=== PATIENT | male | born 1950 | race Caucasian/White ===

== ENCOUNTER 2024-04-25 12:58 | Emergency (ER) | payer MEDICARE, OTHER, SELFPAY ==
[2024-04-25] VITALS (18 sets, daily range): BP systolic 71–160; BP diastolic 55–144; BMI 34.9
--- NOTE | 2024-04-25 12:59 | ED.GENMED ---
History of Present Illness
<Renee Tinoco PA-C - Last Filed: 04/25/24 18:31>
General
Chief Complaint: Fainting Sensation
Source: patient
Exam Limitations: none
Time Seen by Provider: 04/25/24 12:59
Nursing documentation reviewed up to this point in time: agreed with
History of Present Illness
History of Present Illness:
74-year-old male with past medical history of A-fib on Eliquis, CHF, coronary artery disease presenting emergency department with concerns of dizziness for the past 2 days. Patient also notes generalized weakness. Patient states that he went to
his PCP for this problem and was noted to be in A-fib. He was also noted to have low blood pressure in the 70s systolically at the time. Patient states that he is no longer dizzy, but generally feels 'off.' He denies patient's, chest, syncopal
episodes. Patient has paroxysmal afib and believes that the only time he went into it was in 2018 where he was in acute heart failure at the time and subsequently cardioverted. He follows with Dr. Bowie.
Past History
<Renee Tinoco PA-C - Last Filed: 04/25/24 18:31>
Past History
ED Past Medical History: CAD, HTN, Hypercholesterolemia and Other (Prostate CA)
ED Past Surgical History: Appendectomy and Other (prostatectomy, Cath w/ stents)
Social History
Tobacco: Non-smoker
Alcohol: Daily
Personal:
Living: with family
Employment: Employed
Review of Systems
<Renee Tinoco PA-C - Last Filed: 04/25/24 18:31>
Review of Systems
All Other Systems: ROS reviewed and negative except as documented in HPI and ROS
Phy Exam
<Renee Tinoco PA-C - Last Filed: 04/25/24 18:31>
Physical Exam
Physical Exam:
General: Patient is well appearing and in no acute distress; non-toxic
Skin: Warm and dry, no rashes or lesions
Head: Normocephalic, atraumatic
Eyes: Sclera non-icteric. EOMs intact. PERRLA.
Cardiac: Tachycardia, irregularly irregular
Peripheral Vascular: No lower extremity swelling or edema, 2+ dorsalis pedis and posterior tibial pulses bilaterally
Pulm: Normal respiratory effort, no wheezes, crackles, rhonchi
Neuro: CN II-XII intact, no focal neurologic deficits.
Psychiatric: Appropriate mood and affect.
Course
<Renee Tinoco PA-C - Last Filed: 04/25/24 18:31>
Orders/Labs/Results
Orders:
Orders
04/25/24 13:00
Electrocardiogram (*1) Urgent
Reason for Study: Atrial Fibrillation
EKG- Treatment ONCE
04/25/24 13:10
Complete Blood Count/With Diff Urgent
Comprehensive Metabolic Panel Urgent
TSH Reflex To Free T4 Urgent
04/25/24 13:52
Propofol [Diprivan] 20 ml .ROUTE .STK-MED
04/25/24 14:14
0.9% Sodium Chloride 500 ml [Nss] 500 ml IV BOLUS
04/25/24 14:18
Electrocardiogram (*1) Urgent
Reason for Study: Palpitations
EKG- Treatment ONCE
04/25/24 15:47
Electrocardiogram (*1) Urgent
Reason for Study: Angina, Unstable
EKG- Treatment ONCE
Abnormal Lab Results
04/25/24
13:10
RBC 4.65 L 10^6/uL
(4.70-6.10)
Immature Gran % 0.8 H %
(0-0.5)
BUN 59 H mg/dl
(9-20)
Creatinine 2.1 H mg/dL
(0.7-1.3)
Glucose 171 H mg/dl
(70-99)
04/25/24 13:10
04/25/24 13:10
Vital Signs
Initial and Last Documented VS:
Initial Vital Signs
BP
160/59
04/25/24 13:02
Last Documented Vital Signs
Temp Pulse Resp BP Pulse Ox
98.1 F 82 24 112/78 97
04/25/24 14:41 04/25/24 15:41 04/25/24 15:41 04/25/24 15:41 04/25/24 15:41
<Johan Pete, DO - Last Filed: 04/25/24 14:17>
Orders/Labs/Results
Orders:
Orders
04/25/24 13:00
Electrocardiogram (*1) Urgent
Reason for Study: Atrial Fibrillation
EKG- Treatment ONCE
04/25/24 13:10
Complete Blood Count/With Diff Urgent
Comprehensive Metabolic Panel Urgent
TSH Reflex To Free T4 Urgent
04/25/24 13:52
Propofol [Diprivan] 20 ml .ROUTE .STK-MED
04/25/24 14:14
0.9% Sodium Chloride 500 ml [Nss] 500 ml IV BOLUS
04/25/24 14:18
Electrocardiogram (*1) Urgent
Reason for Study: Palpitations
EKG- Treatment ONCE
04/25/24 15:47
Electrocardiogram (*1) Urgent
Reason for Study: Angina, Unstable
EKG- Treatment ONCE
Abnormal Lab Results
04/25/24
13:10
RBC 4.65 L 10^6/uL
(4.70-6.10)
Immature Gran % 0.8 H %
(0-0.5)
BUN 59 H mg/dl
(9-20)
Creatinine 2.1 H mg/dL
(0.7-1.3)
Glucose 171 H mg/dl
(70-99)
04/25/24 13:10
04/25/24 13:10
Vital Signs
Initial and Last Documented VS:
Initial Vital Signs
BP
160/59
04/25/24 13:02
Last Documented Vital Signs
Temp Pulse Resp BP Pulse Ox
98.1 F 82 24 112/78 97
04/25/24 14:41 04/25/24 15:41 04/25/24 15:41 04/25/24 15:41 04/25/24 15:41
Procedures
<Johan Pete DO - Last Filed: 04/25/24 14:17>
Cardioversion
Indication:: Afib
Performed by:: , Dr. Pete
Synchronized?: Yes
Energy Used: 200 joules
Number of attempts: 1
Successful?: Yes
ASA Risk Score: Class III
Any reaction or bad outcome to prior sedation/anesthesia?: No history of a reaction
Sedation level to be attained: moderate
Chart and allergies reviewed: Yes
Patient reassessed prior to sedation: Yes
Time out completed at (validating right patient & procedure): 14:00
History of difficult intubation: No
Airway free of obstruction: Yes
Patient has a gag reflex: Yes
Patient is able to open mouth: Yes
Patient has no dentures: Yes
Patient has no loose teeth: Yes
Medication administered by Provider during Moderate Sedation: IV Propofol (mg)
Total dose administered: 60
Time drug administered: 14:01
Start Time: 14:00
Stop Time: 14:11
<Renee Tinoco PA-C - Last Filed: 04/25/24 18:31>
MDM/Problems Addressed
Differential Diagnosis Includes:
Differentials include A-fib, electrolyte derangement, vasovagal presyncope, peripheral vertigo
MDM/Problems Addressed:
74-year-old male with past medical history of A-fib on Eliquis, CHF, coronary artery disease presenting emergency department with concerns of dizziness for the past 2 days. He went to doctor's office today and was found to be in rapid A-fib with a
blood pressure systolically in the 70s. EMS was called. Patient is currently asymptomatic and has a normal blood pressure. Patient does note that his blood pressure has been running lower recently. Upon presentation to the emergency department,
his blood pressure was 160/59. On physical exam, patient is well-appearing, no acute distress, heart rate irregular irregular. He has no chest pain, no shortness of breath. He previously went into A-fib around 2018 and was cardioverted. Patient
is rate controlled on beta-blockers. Patient is compliant with his Eliquis. Considering patient had unstable blood pressure in the office and was very symptomatic, did discuss the possibility of cardioversion with patient's cardiology group, [facility].
Dr. Maki aware and okay with plan. Patient successfully cardioverted. Patient's pressure after the procedure was low again, systolically in the 70s. He was given 400 and liter bolus of normal saline, and after period of observation, his
pressure came up to 112/170 and patient feels that this is what his baseline blood pressure has been recently. Patient is asymptomatic and feels well. I personally ambulated with patient throughout the emergency department and patient did not
become symptomatic. Patient states that he feels well to go home. Patient stable for discharge. Return precautions discussed.
Chronic conditions affecting care:
CHF on Lasix, A-fib on Eliquis, hypertension, hyperlipidemia
[place];Renee Tinoco PA-C - Last Filed: 04/25/24 18:31>
*Pulse Oximetry
Patient hypoxic: no
*EKG
Interpreted by ED Provider?: Yes
EKG Intrepretation Date: 04/25/24
Interpretation: abnormal
Comparison EKG: changes noted
Heart Rate: 127
Rate: tachycardiac
Rhythm: a-fib
[place]: normal axis
QRS Pattern: normal QRS
Ischemia: no ischemia
Data Reviewed
Review of Other/Old Records Reveals: Records (Reviewed ER physician documentation, 08/06/2017 patient managed for CHF, A-fib, patient was cardioverted) and Discharge Summary (Reviewed discharge summary from 08/10/2017)
Source: patient and records
Prescriptions/Medications Considered But Not Given:
n/a
Further Testing Considered But Not Given:
n/a
<Johan Pete DO - Last Filed: 04/25/24 14:17>
*Critical Care Note
Total Time (30-74mins, 75-104mins- exclusive of procedures): 40min
comment:
The patient was found to be in rapid A-fib. He apparently was hypotensive earlier in the day. He arrived normotensive. His vital signs were closely monitored. He was cardioverted. After sedation with cardioversion, his pressure did drop for a
while. He was given IV fluids and his vital signs were very closely monitored.
<Renee Tinoco PA-C - Last Filed: 04/25/24 18:31>
Patient Management
Escalation/DeEscalation of care consider admission/obs:
Admit not indicated, patient stable for discharge
ED Attending Note
<Renee Tinoco PA-C - Last Filed: 04/25/24 18:31>
-
Portions of this chart may have been created with voice recognition software.� Occasional wrong word or��sound alike� substitutions may have occurred due to the inherent limitations of voice recognition software.
<Johan Pete DO - Last Filed: 04/25/24 14:17>
ED Attending Note
Patient seen and examined by attending physician: Yes
I performed the substantive portion of visit, reviewed & personally made and approve the management plan that is documented in note by myself or RODRÍGUEZ.: Yes
I performed a history and physical exam of patient and discussed management with resident, I reviewed resident's note and agree with documented findings and plan of care.: Yes
ED Attending Note:
I evaluated patient at bedside. The patient was sedated and successfully cardioverted on 1 attempt. BP dropped after procedural sedation. He was given IV fluids.
Discharge Plan
Departure
Patient Disposition: Home (Routine Discharge)
Date of Disposition: 04/25/24
Time of Disposition: 15:55
Patient with high blood pressure during this ER visit?: Yes
Condition: Good
Discharge Problem:
Atrial fibrillation
Instructions: Atrial fibrillation, Procedural Sedation, Adult ED, BLOOD PRESSURE
Prescriptions:
No Action
valsartan [Diovan] 160 MG capsule
160 mg PO BID
hydralazine 25 MG tablet
25 mg PO BID
rosuvastatin 40 MG tablet
40 mg PO DAILY
gjqxktukfew-O5-Exevykeur serr 1 EACH tablet
1 ea PO DAILY
apixaban [Eliquis] 5 MG tablet
5 mg PO BID
alogliptin-pioglitazone 1 EACH tablet
1 ea PO DAILY
carvedilol 6.25 MG tablet
6.25 mg PO BID Qty: 60 2RF
aspirin 81 MG tablet,delayed release (DR/EC)
81 mg PO DAILY 0RF
fenofibrate nanocrystallized 48 MG tablet
48 mg PO DAILY Qty: 30 2RF
furosemide 40 MG tablet
40 mg PO DAILY Qty: 30 2RF
Referrals:
Les Elizabeth DO [Family Provider] -
Activity Restrictions/Additional Instructions:
Please call Dr. Bowie's office to schedule follow up appointment. His office is aware that you were here today.
Your creatinine today was 2.1 You received IV fluids in the emergency department. Your eliquis dose may need to be adjusted. 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
Please return to the emergency department should experience chest pain, palpitations, dizziness, lightheadedness, syncopal episodes, headache, nausea, vomiting, decreased urinary output, weakness on one-sided body versus other, difficulty speaking,
confusion, or any other signs or symptoms concerning to you
Interventions
Interventions:
*Risk Screen - Suicide Last Done: 04/25/24 13:05
*General Assessment Last Done: 04/25/24 13:05
*Neglect/Abuse Screening Last Done: 04/25/24 13:05
ED- Fall Risk Assessment Last Done: 04/25/24 16:00
*ED COVID-19 Vaccine History Last Done: 04/25/24 13:15
*Nursing Disposition Last Done: 04/25/24 16:14
ED- Cardiac Assessment Last Done: 04/25/24 13:24
ED- Neurological Assessment Last Done: 04/25/24 13:24
Discharge Date and Time
Discharge Date/Time: 04/25/24 16:16
Print Language: CHINESE
[2024-04-25 13:35] LABS: % Basophils 0.2 % (0-2); % Immature Granulocytes 0.8 % (0-0.5); % Lymphocytes 23.1 % (20.5-51.1); % Monocytes 7.3 % (1.7-9.3); % Neutrophils 67.6 % (42.2-75.2); Absolute Eosinophils 0.1 10^3/uL (0-0.7); Absolute Lymphocytes 1.2 10^3/uL (1.2-3.4); Absolute Monocytes 0.4 10^3/uL (0.1-0.6); Absolute Neutrophils 3.5 10^3/uL (1.4-6.5); Hemoglobin 14.3 g/dL (13.0-18.0); Mean Corp Hgb Conc. 34.9 g/dL (33.0-37.0); Mean Corpuscular Hgb 30.8 pg (27.0-31.0); Mean Corpuscular Volume 88.2 fL (80.0-94.0); Mean Platelet Volume 9.1 fL (7.4-10.4); Nucleated Red Blood Cells % 0 % (-); Platelet Count 150 10^3/uL (130-400); Red Blood Cell Count 4.65 10^6/uL (4.70-6.10); Red Cell Dist. Width 13.6 % (11.5-14.5); White Blood Cell Count 5.2 10^3/uL (4.8-10.8)
[2024-04-25 13:56] LABS: ALT (SGPT) 33 U/L (0-50); AST (SGOT) 33 U/L (17-59); Albumin 4.3 g/dl (3.5-5.0); Alkaline Phosphatase 63 U/L (38-126); Blood Urea Nitrogen 59 mg/dl (9-20); Calcium 9.5 mg/dl (8.4-10.2); Carbon Dioxide 23 mmol/L (22-30); Chloride 99 mmol/L (98-107); Estimated Creatinine Clearance 44 ml/min; Glucose 171 mg/dl (70-99); Potassium 3.8 mmol/L (3.5-5.1); Sodium 140 mmol/L (135-145); Total Bilirubin 1.1 mg/dl (0.2-1.3); Total Protein 6.9 g/dl (6.3-8.2); eGFR 32.62
[2024-04-25] MEDS: NSS 500 IV (14:20)
[2024-04-25 14:59] LABS: TSH Reflex To Free T4 2.52 uIU/ml (0.47-4.68)
== END 2024-04-25 16:16 | disposition home or self-care (01) ==
LOC: EMR 12:58
PROVIDERS: EMERGENCY PHYSICIAN Emergency Medicine; FAMILY PHYSICIAN Family Medicine
DX: I48.91 Unspecified atrial fibrillation (principal); R55 Syncope and collapse; E78.00 Pure hypercholesterolemia, unspecified; I25.119 Atherosclerotic heart disease of native coronary artery with unspecified angina pectoris; I11.0 Hypertensive heart disease with heart failure; I50.9 Heart failure, unspecified; Z79.01 Long term (current) use of anticoagulants; Z85.46 Personal history of malignant neoplasm of prostate; Z90.49 Acquired absence of other specified parts of digestive tract; Z90.79 Acquired absence of other genital organ(s)
CPT/HCPCS: 99284; 92960; 80053; 84443; 85025; 93005

== ENCOUNTER → 2024-06-13 08:22 | Outpatient (REF) | payer MEDICARE, OTHER, SELFPAY | LOC: RCS 08:22 | PROVIDERS: ATTENDING PHYSICIAN Nurse Practitioner; FAMILY PHYSICIAN Family Medicine | DX: I48.0 Paroxysmal atrial fibrillation (principal); I10 Essential (primary) hypertension; I77.810 Thoracic aortic ectasia | CPT/HCPCS: 93306 ==

== ENCOUNTER → 2024-12-09 09:57 | Outpatient (REF) | payer MEDICARE, OTHER, SELFPAY | LOC: HWRAD 09:57 | PROVIDERS: ATTENDING PHYSICIAN Family Medicine | DX: Z87.891 Personal history of nicotine dependence (principal); M54.50 Low back pain, unspecified | CPT/HCPCS: 72110; 76770 ==